=== PATIENT | female | born 1995 | race American Indian/Alaskan Native ===

== ENCOUNTER 2021-01-27 13:08 | Emergency (ER) | payer SELFPAY ==
[2021-01-27 13:15] VITALS: BP 108/55
[2021-01-27] MEDS ORDERED: LIDOCAINE (1%) 10 MG/1 ML VIAL 20 ML MDV INFILTRATI ONE (13:47)
[2021-01-27] MEDS ORDERED: NEOMY 3.5 MG/BACIT 400 UNITS/POLY B 5000 UNITS/GM OINT PACKET TP ONE (13:47)
--- NOTE | 2021-01-27 13:47 | Emergency Department Report ---
ED Head Trauma HPI - General Chief complaint: Wound/Laceration Stated complaint: HEAD INJURY Time Seen by Provider: 01/27/21 13:43 Source: patient Mode of arrival: Ambulatory Limitations: No Limitations - History of Present Illness Initial comments: 26-year-old female presents to the ER today with complaints of laceration to the right forehead area. Patient states that she got hit in the head by a ceiling fan. She states that her bed is high and when she stood up she got hit by the ceiling fan while it was spinning. This occurred around yesterday around 10 AM. She denies any LOC. She reports some soreness mainly around the wound. She denies any headache, vision changes, neck pain, or any other symptoms at this time. MD Complaint: head injury, other (Laceration right forehead) -: Sudden (Yesterday around 10 AM) - Related Data Allergies/Adverse reactions: Allergies Allergy/AdvReac Type Severity Reaction Status Date / Time No Known Allergies Allergy Unverified 01/27/21 13:15 ED Review of Systems ROS: Stated complaint: HEAD INJURY Other details as noted in HPI Comment: All other systems reviewed and negative Constitutional: denies: chills, fever Eyes: denies: eye pain, eye discharge, vision change ENT: denies: ear pain, throat pain Respiratory: denies: cough, shortness of breath, wheezing Cardiovascular: denies: chest pain, palpitations Gastrointestinal: denies: nausea, vomiting Skin: other (laceration right forehead) Neurological: denies: headache, weakness, numbness, paresthesias, confusion, abnormal gait Psychiatric: denies: anxiety, depression Hematological/Lymphatic: denies: easy bleeding, easy bruising ED Past Medical Hx - Past Medical History Previous Medical History?: No - Surgical History Additional Surgical History: C sect - Social History Smoking Status: Never Smoker Substance Use Type: None ED Physical Exam - General Limitations: No Limitations General appearance: alert, in no apparent distress - Head Head exam: Present: normocephalic, other (Approximately 2 cm avulsion laceration noted to the right forehead area. No active bleeding. Mild tenderness and swelling around the wound. No deformity.) - Eye Eye exam: Present: normal appearance, PERRL, EOMI Pupils: Present: normal accommodation - Neck Neck exam: Present: normal inspection, full ROM - Respiratory Respiratory exam: Absent: respiratory distress - Cardiovascular Cardiovascular Exam: Present: regular rate - Neurological Exam Neurological exam: Present: alert, oriented X3, CN II-XII intact, normal gait. Absent: motor sensory deficit - Psychiatric Psychiatric exam: Present: normal affect, normal mood ED Course Vital Signs 01/27/21 13:10 Temperature 98.5 F Pulse Rate 67 Respiratory 15 Rate Blood Pressure 108/55 O2 Sat by Pulse 99 Oximetry - Laceration /Wound Repair Right Head Wound Location: head (right forehead area) Wound's Depth, Shape: superficial, irregular, flap Wound Explored: clean Irrigated w/ Saline (ccs): 10 Betadine Prep?: Yes Anesthesia: 1% Lidocaine Volume Anesthetic (ccs): 2 Wound Repaired With: sutures Suture Size/Type: 6:0, proline Number of Sutures: 5 Layer Closure?: No Sterile Dressing Applied?: Yes Progress: Patient tolerated procedure well without any complications. Critical care attestation.: If time is entered above; I have spent that time in minutes in the direct care of this critically ill patient, excluding procedure time. ED Disposition Clinical Impression: Forehead laceration, Head injury, closed, without LOC Disposition: DC-01 TO HOME OR SELFCARE Is pt being admited?: No Does the pt Need Aspirin: No Condition: Stable Instructions: Head Injury, Adult, [id number], Laceration Care, Adult, [id number] Additional Instructions: Keep the wound clean daily with soap and water. Do not use alcohol or peroxide. Dry well after each cleaning and apply a thin layer of Neosporin after each cleaning. Sutures will need to be removed in 5 to 7 days. You can take Tylenol and/or ibuprofen for pain. You can follow-up with your primary care doctor or ER for suture removal. Return sooner if there is any signs of infection such as pus drainage, increasing redness or swelling. Referrals: KAMRAN KELLER MD [Staff Physician] - 7-10 days Time of Disposition: 14:45
== END 2021-01-27 15:06 | disposition home or self-care (01) ==
LOC: ED 13:08
DX: S01.81XA Laceration without foreign body of other part of head, initial encounter (principal); S09.90XA Unspecified injury of head, initial encounter; Z98.890 Other specified postprocedural states; W22.8XXA Striking against or struck by other objects, initial encounter; Y93.89 Activity, other specified; Y92.89 Other specified places as the place of occurrence of the external cause; Y99.8 Other external cause status
CPT/HCPCS: 12001; 99282; A6250

== ENCOUNTER 2021-02-13 17:37 | Emergency (ER) | payer SELFPAY ==
[2021-02-13 17:52] VITALS: BP 118/73
[2021-02-13 18:47] LABS: Bacteria,Urine 1+ /HPF (Negative); Bilirubin,Urine NEG (Negative); Blood,Urine NEG (Negative); Color,Urine Straw (Yellow); Protein,Urine <15 mg/dL mg/dL (Negative); Urobilinogen,Urine < 2.0 mg/dL (<2.0)
--- NOTE | 2021-02-13 20:03 | Event Note ---
ED Screening Note Date of service: 02/13/21 Time: 20:01 ED Screening Note: Patient complains of lower abdominal pain which radiates into the back Onset a couple days ago She denies any nausea, vomiting and UTI symptoms or any vaginal discharge. Has had the same sexual partner. Last menstrual cycle was January 13, 2021; she is not any control Last bowel movement was this morning and normal Abdominal surgery includes past This initial assessment/diagnostic orders/clinical plan/treatment(s) is/are subject to change based on patients health status, clinical progression and re- assessment by fellow clinical providers in the ED. Further treatment and workup at subsequent clinical providers discretion. Patient/guardian urged not to elope from the ED as their condition may be serious if not clinically assessed and managed. Initial orders include: CBC, CMP, urinalysis hCG
[2021-02-13 20:15] LABS: Basophils # (Auto) 0.1 K/mm3 (0.0-0.1); Basophils % (Auto) 0.8 % (0.0-1.8); Eosinophils % (Auto) 0.4 % (0.0-4.3); Hematocrit 41.7 % (30.3-42.9); Hemoglobin 13.7 gm/dl (10.1-14.3); Lymphocytes # (Auto) 3.2 K/mm3 (1.2-5.4); Lymphocytes % (Auto) 41.7 % (13.4-35.0); Mean Corpuscular HGB Conc 33 % (30-34); Mean Corpuscular Volume 86 fl (79-97); Monocytes # (Auto) 0.5 K/mm3 (0.0-0.8); Platelet Count 198 K/mm3 (140-440); Red Blood Count 4.85 M/mm3 (3.65-5.03); Red Cell Distribution Width 13.8 % (13.2-15.2)
[2021-02-13 22:17] LABS: Alanine Aminotransferase 11 units/L (7-56); Albumin 4.7 g/dL (3.9-5); Blood Urea Nitrogen 12 mg/dL (7-17); Calcium 9.7 mg/dL (8.4-10.2); Hemolysis Index 6
[2021-02-13 22:22] LABS: BUN/Creatinine Ratio 20
[2021-02-13 22:55] LABS: Bacteria,Urine 1+ /HPF (Negative); Bilirubin,Urine NEG (Negative); Blood,Urine NEG (Negative); Color,Urine Yellow (Yellow); Mucus,Urine 3+ /HPF; Protein,Urine <15 mg/dL mg/dL (Negative); Urobilinogen,Urine < 2.0 mg/dL (<2.0)
--- NOTE | 2021-02-13 23:21 | Ultrasound Report ---
US OB <= 14 weeks fetus, US OB transvaginal INDICATION / CLINICAL INFORMATION: pelvic pain. COMPARISON: None available. FINDINGS: Uterus is retroflexed. On one image, the endometrium appears thickened, but multiple images show the endometrium to measure approximately 7 mm in diameter. There is no evidence of intrauterine . Right ovary contains a 1.8 cm cyst and smaller follicular cysts. Left ovary is normal. Color Doppler imaging shows normal vascular flow in both ovaries. No free fluid. IMPRESSION: 1. No evidence of intrauterine or extrauterine . If hCG levels are high, suggest follow-up. Signer Name: Gilmer Baltazar MD Signed: 02/13/2021 11:17 PM Workstation Name: [id number]
--- NOTE | 2021-02-13 23:59 | Emergency Department Report ---
ED HPI - General Chief complaint: Abdominal Pain Stated complaint: ABDOMINAL PAIN/BACK PAIN Time Seen by Provider: 02/13/21 19:57 Source: patient Mode of arrival: Ambulatory Limitations: No Limitations - History of Present Illness Initial comments: This is a 20-year-old female nontoxic, well nourished in appearance, no acute signs of distress presents to the ED with c/o of pelvic pain times several days. Patient otherwise denies any vaginal bleeding. Patient denies any upper abdominal pain. Patient denies any vaginal discharge or foul odor. Patient denies any nausea, vomiting, chest pain, shortness of breathe, fever, chills, headache, stiff neck, numbness, tingling. Patient denies any urinary symptoms. Last menstrual cycle was early/mid January. Patient denies any allergies or PMH. Patient stated she is unsure if she is . -: days(s) Location: pelvis Radiation: none Severity: mild Severity scale (0 -10): 3 Quality: cramping, aching Consistency: constant Improves with: none Worsens with: none Associated symptoms: denies other symptoms. denies: nausea/vomiting, vaginal bleeding, vaginal discharge, abdominal pain, dysuria, headache, vision changes, malaise, dysparuenia, rash, seizure, shortness of breath, syncope, weakness Vaginal bleeding: none Pre- care: none - Related Data Previous Rx's Medication Instructions Recorded Last Taken Type 21/Iron Fu/Folic Acid 1 each PO DAILY #30 tablet 02/14/21 Unknown Rx [ Complete Caplet] Allergies Allergy/AdvReac Type Severity Reaction Status Date / Time No Known Allergies Allergy Unverified 01/27/21 13:15 ED Review of Systems ROS: Stated complaint: ABDOMINAL PAIN/BACK PAIN Other details as noted in HPI Comment: All other systems reviewed and negative Constitutional: denies: chills, fever Eyes: denies: eye pain, eye discharge, vision change ENT: denies: ear pain, throat pain Respiratory: denies: cough, shortness of breath, wheezing Cardiovascular: denies: chest pain, palpitations Endocrine: no symptoms reported Gastrointestinal: denies: abdominal pain, nausea, diarrhea Genitourinary: denies: urgency, dysuria, discharge Musculoskeletal: denies: back pain, joint swelling, arthralgia Skin: denies: rash, lesions Neurological: denies: headache, weakness, paresthesias Psychiatric: denies: anxiety, depression Hematological/Lymphatic: denies: easy bleeding, easy bruising ED Past Medical Hx - Past Medical History Previous Medical History?: No - Surgical History Past Surgical History?: Yes Additional Surgical History: C sect - Social History Smoking Status: Never Smoker Substance Use Type: None - Medications Home Medications: Home Medications Medication Instructions Recorded Confirmed Last Taken Type 21/Iron Fu/Folic Acid 1 each PO DAILY #30 tablet 02/14/21 Unknown Rx [ Complete Caplet] ED Physical Exam - General Limitations: No Limitations General appearance: alert, in no apparent distress - Head Head exam: Present: atraumatic, normocephalic - Eye Eye exam: Present: normal appearance - Neck Neck exam: Present: normal inspection, full ROM. Absent: lymphadenopathy - Respiratory Respiratory exam: Absent: respiratory distress - Cardiovascular Cardiovascular Exam: Present: regular rate - GI/Abdominal GI/Abdominal exam: Present: soft, normal bowel sounds. Absent: distended, tenderness, guarding, rebound, rigid, diminished bowel sounds - Extremities Exam Extremities exam: Present: normal inspection, full ROM - Back Exam Back exam: Present: normal inspection, full ROM. Absent: tenderness, CVA tenderness (R), CVA tenderness (L), muscle spasm, paraspinal tenderness, ve rtebral tenderness, rash noted - Neurological Exam Neurological exam: Present: alert, oriented X3, normal gait - Psychiatric Psychiatric exam: Present: normal affect, normal mood - Skin Skin exam: Present: warm, dry, intact, normal color. Absent: rash ED Course Vital Signs 02/13/21 17:51 Temperature 98.3 F Pulse Rate 81 Respiratory 16 Rate Blood Pressure 118/73 O2 Sat by Pulse 100 Oximetry - Reevaluation(s) Reevaluation #1: 02/13/21 23:56 Patient is speaking in full sentences with no signs of distress noted. ED Medical Decision Making - Lab Data Result diagrams: 02/13/21 20:04 02/13/21 21:36 Lab Results 02/13/21 02/13/21 02/13/21 Range/Units 18:12 20:04 20:04 WBC 7.6 (4.5-11.0) K/mm3 RBC 4.85 (3.65-5.03) M/mm3 Hgb 13.7 (10.1-14.3) gm/dl Hct 41.7 (30.3-42.9) % MCV 86 (79-97) fl MCH 28 (28-32) pg MCHC 33 (30-34) % RDW 13.8 (13.2-15.2) % Plt Count 198 (140-440) K/mm3 Lymph % (Auto) 41.7 H (13.4-35.0) % Floyd % (Auto) 6.0 (0.0-7.3) % Eos % (Auto) 0.4 (0.0-4.3) % Baso % (Auto) 0.8 (0.0-1.8) % Lymph # (Auto) 3.2 (1.2-5.4) K/mm3 Floyd # (Auto) 0.5 (0.0-0.8) K/mm3 Eos # (Auto) 0.0 (0.0-0.4) K/mm3 Baso # (Auto) 0.1 (0.0-0.1) K/mm3 Seg Neutrophils % 51.1 (40.0-70.0) % Seg Neutrophils # 3.9 (1.8-7.7) K/mm3 Sodium (137-145) mmol/L Potassium (3.6-5.0) mmol/L Chloride (98-107) mmol/L Carbon Dioxide (22-30) mmol/L Anion Gap mmol/L BUN (7-17) mg/dL Creatinine (0.6-1.2) mg/dL Estimated GFR ml/min BUN/Creatinine Ratio % Glucose (65-100) mg/dL Calcium (8.4-10.2) mg/dL Total Bilirubin (0.1-1.2) mg/dL AST (5-40) units/L ALT (7-56) units/L Alkaline Phosphatase (35-129) units/L Total Protein (6.3-8.2) g/dL Albumin (3.9-5) g/dL Albumin/Globulin Ratio % Lipase 37 (13-60) units/L HCG, Qual (Negative) HCG, Quant (0-4) mIU/mL Urine Color Straw (Yellow) Urine Turbidity Clear (Clear) Urine pH 7.0 (5.0-7.0) Ur Specific [place] 1.014 (1.003-1.030) Urine Protein <15 mg/dl (Negative) mg/dL Urine Glucose (UA) 50 (Negative) mg/dL Urine Ketones Neg (Negative) mg/dL Urine Blood Neg (Negative) Urine Nitrite Neg (Negative) Urine Bilirubin Neg (Negative) Urine Urobilinogen < 2.0 (<2.0) mg/dL Ur Leukocyte Esterase Tr (Negative) Urine WBC (Auto) 4.0 (0.0-6.0) /HPF Urine RBC (Auto) 3.0 (0.0-6.0) /HPF U Epithel Cells (Auto) 1.0 (0-13.0) /HPF Urine Bacteria (Auto) 1+ (Negative) /HPF Urine Mucus /HPF 02/13/21 02/13/21 02/13/21 Range/Units 20:04 21:36 21:36 WBC (4.5-11.0) K/mm3 RBC (3.65-5.03) M/mm3 Hgb (10.1-14.3) gm/dl Hct (30.3-42.9) % MCV (79-97) fl MCH (28-32) pg MCHC (30-34) % RDW (13.2-15.2) % Plt Count (140-440) K/mm3 Lymph % (Auto) (13.4-35.0) % Floyd % (Auto) (0.0-7.3) % Eos % (Auto) (0.0-4.3) % Baso % (Auto) (0.0-1.8) % Lymph # (Auto) (1.2-5.4) K/mm3 Floyd # (Auto) (0.0-0.8) K/mm3 Eos # (Auto) (0.0-0.4) K/mm3 Baso # (Auto) (0.0-0.1) K/mm3 Seg Neutrophils % (40.0-70.0) % Seg Neutrophils # (1.8-7.7) K/mm3 Sodium 137 (137-145) mmol/L Potassium 4.0 (3.6-5.0) mmol/L Chloride 100.1 (98-107) mmol/L Carbon Dioxide 29 (22-30) mmol/L Anion Gap 12 mmol/L BUN 12 (7-17) mg/dL Creatinine 0.6 (0.6-1.2) mg/dL Estimated GFR > 60 ml/min BUN/Creatinine Ratio 20 % Glucose 82 (65-100) mg/dL Calcium 9.7 (8.4-10.2) mg/dL Total Bilirubin 0.20 (0.1-1.2) mg/dL AST 17 (5-40) units/L ALT 11 (7-56) units/L Alkaline Phosphatase 56 (35-129) units/L Total Protein 7.3 (6.3-8.2) g/dL Albumin 4.7 (3.9-5) g/dL Albumin/Globulin Ratio 1.8 % Lipase (13-60) units/L HCG, Qual Positive (Negative) HCG, Quant 52.43 H (0-4) mIU/mL Urine Color (Yellow) Urine Turbidity (Clear) Urine pH (5.0-7.0) Ur Specific [place] (1.003-1.030) Urine Protein (Negative) mg/dL Urine Glucose (UA) (Negative) mg/dL Urine Ketones (Negative) mg/dL Urine Blood (Negative) Urine Nitrite (Negative) Urine Bilirubin (Negative) Urine Urobilinogen (<2.0) mg/dL Ur Leukocyte Esterase (Negative) Urine WBC (Auto) (0.0-6.0) /HPF Urine RBC (Auto) (0.0-6.0) /HPF U Epithel Cells (Auto) (0-13.0) /HPF Urine Bacteria (Auto) (Negative) /HPF Urine Mucus /HPF 02/13/21 Range/Units Unknown WBC (4.5-11.0) K/mm3 RBC (3.65-5.03) M/mm3 Hgb (10.1-14.3) gm/dl Hct (30.3-42.9) % MCV (79-97) fl MCH (28-32) pg MCHC (30-34) % RDW (13.2-15.2) % Plt Count (140-440) K/mm3 Lymph % (Auto) (13.4-35.0) % Floyd % (Auto) (0.0-7.3) % Eos % (Auto) (0.0-4.3) % Baso % (Auto) (0.0-1.8) % Lymph # (Auto) (1.2-5.4) K/mm3 Floyd # (Auto) (0.0-0.8) K/mm3 Eos # (Auto) (0.0-0.4) K/mm3 Baso # (Auto) (0.0-0.1) K/mm3 Seg Neutrophils % (40.0-70.0) % Seg Neutrophils # (1.8-7.7) K/mm3 Sodium (137-145) mmol/L Potassium (3.6-5.0) mmol/L Chloride (98-107) mmol/L Carbon Dioxide (22-30) mmol/L Anion Gap mmol/L BUN (7-17) mg/dL Creatinine (0.6-1.2) mg/dL Estimated GFR ml/min BUN/Creatinine Ratio % Glucose (65-100) mg/dL Calcium (8.4-10.2) mg/dL Total Bilirubin (0.1-1.2) mg/dL AST (5-40) units/L ALT (7-56) units/L Alkaline Phosphatase (35-129) units/L Total Protein (6.3-8.2) g/dL Albumin (3.9-5) g/dL Albumin/Globulin Ratio % Lipase (13-60) units/L HCG, Qual (Negative) HCG, Quant (0-4) mIU/mL Urine Color Yellow (Yellow) Urine Turbidity Slightly-cloudy (Clear) Urine pH 5.0 (5.0-7.0) Ur Specific [place] 1.025 (1.003-1.030) Urine Protein <15 mg/dl (Negative) mg/dL Urine Glucose (UA) Neg (Negative) mg/dL Urine Ketones 20 (Negative) mg/dL Urine Blood Neg (Negative) Urine Nitrite Neg (Negative) Urine Bilirubin Neg (Negative) Urine Urobilinogen < 2.0 (<2.0) mg/dL Ur Leukocyte Esterase Mod (Negative) Urine WBC (Auto) 18.0 H (0.0-6.0) /HPF Urine RBC (Auto) 12.0 (0.0-6.0) /HPF U Epithel Cells (Auto) 13.0 (0-13.0) /HPF Urine Bacteria (Auto) 1+ (Negative) /HPF Urine Mucus 3+ /HPF - Radiology Data [facility] [address] [place] [address] Ultrasound Report Signed Patient: SABRINA HARRIS MR# : [id number] : 1995 Acct:[id number] Age/Sex: 26 / F ADM Date: 02/13/21 Loc: ED Attending Dr: Ordering Physician: SAMANTHA LOMELI NP Date of Service: 02/13/21 Procedure(s): US OB transvaginal Accession Number(s): [id number] cc: SAMANTHA LANGLEY NP US OB <= 14 weeks fetus, US OB transvaginal INDICATION / CLINICAL INFORMATION: pelvic pain. COMPARISON: None available. FINDINGS: Uterus is retroflexed. On one image, the endometrium appears thickened, but multiple images show the endometrium to measure approximately 7 mm in diameter. There is no evidence of intrauterine . Right ovary contains a 1.8 cm cyst and smaller follicular cysts. Left ovary is normal. Color Doppler imaging shows normal vascular flow in both ovaries. No free fluid. IMPRESSION: 1. No evidence of intrauterine or extrauterine . If hCG levels are high, suggest follow- up. Signer Name: Gilmer Baltazar MD Signed: 02/13/2021 11:17 PM Workstation Name: [id number] Transcribed By: TM Dictated By: Gilmer Baltazar MD Electronically Authenticated By: Gilmer Baltazar MD Signed Date/Time: 02/13/212316 DD/ 02 TD/TT: [facility] [address] [place] [address] Ultrasound Report Signed Patient: SABRINA HARRIS MR# : [id number] : 1995 Acct:[id number] Age/Sex: 26 / F ADM Date: 02/13/21 Loc: ED Attending Dr: Ordering Physician: SAMANTHA LOMELI NP Date of Service: 02/13/21 Procedure(s): US OB <= 14 weeks fetus Accession Number(s): [id number] cc: SAMANTHA LOMELI NP US OB <= 14 weeks fetus, US OB transvaginal INDICATION / CLINICAL INFORMATION: pelvic pain. COMPARISON: None available. FINDINGS: Uterus is retroflexed. On one image, the endometrium appears thickened, but multiple images show the endometrium to measure approximately 7 mm in diameter. There is no evidence of intrauterine . Right ovary contains a 1.8 cm cyst and smaller follicular cysts. Left ovary is normal. Color Doppler imaging shows normal vascular flow in both ovaries. No free fluid. IMPRESSION: 1. No evidence of intrauterine or extrauterine . If hCG levels are high, suggest follow- up. Signer Name: Gilmer Baltazar MD Signed: 02/13/2021 11:17 PM Workstation Name: [id number] Transcribed By: TM Dictated By: Gilmer Baltazar MD Electronically Authenticated By: Gilmer Baltazar MD Signed Date/Time: 02/13/212316 DD/ 02 TD/TT: - Medical Decision Making This is a 26-year-old female presents with pelvic pain during . Patient is stable and was examined by me. Normal abdominal exam. US OB obtained and dictated by the radiologist. Ua obtained. Quantative serum test obtained. Patient notified of the US report with no questions noted by the patient. Patient was instructed f/u with [facility] in 2 days for a repeat quantitative test and possible ultrasound. There is no vaginal bleeding. Labs within normal limits. Patient was given strict precautions and education on ectopic . At time of discharge, the patient does not seem toxic or ill in appearance. No acute signs of distress noted. Patient agrees to discharge treatment plan of care. No further questions noted by the patient. Critical care attestation.: If time is entered above; I have spent that time in minutes in the direct care of this critically ill patient, excluding procedure time. ED Disposition Clinical Impression: Pelvic pain during Disposition: - TO HOME OR SELFCARE Is pt being admited?: No Does the pt Need Aspirin: No Condition: Stable Instructions: Abdominal Pain (ED), Pelvic Pain, Female, [id number] Additional Instructions: Follow-up with a [facility] doctor in 2 days for possible repeat quantitative test and possible ultrasound or if symptoms worsen and continue return to emergency room as soon as possible. Prescriptions: 21/Iron Fu/Folic Acid [ Complete Caplet] 1 each PO DAILY #30 tablet Referrals: [facility] [Primary Care Provider] - 3-5 Days [facility] [Provider Group] - 3-5 Days [facility] [Provider Group] - 3-5 Days Time of Disposition: 00:01
== END 2021-02-14 00:18 | disposition home or self-care (01) ==
LOC: ED 17:37
DX: O26.891 Other specified pregnancy related conditions, first trimester (principal); R10.2 Pelvic and perineal pain; Z3A.01 Less than 8 weeks gestation of pregnancy; Z79.899 Other long term (current) drug therapy
CPT/HCPCS: 36415; 76801; 76817; 80053; 81001; 83690; 84702; 84703; 85025; 87086